=== PATIENT | male | born 1950 | race African-American/Black ===

== ENCOUNTER → 2017-09-22 | Outpatient (CLI) | payer OTHER ==
[~2017-09-22] MED LIST: AMBIEN10 MG PO; CLARITIN10 MG PO; MOTRIN800 MG PO; ROBAXIN750 MG PO; TRAMADOL HCL50 MG PO; VALIUM5 MG PO
== END | disposition home or self-care (01) ==
LOC: RAD 09:55
DX: M47.896 Other spondylosis, lumbar region (principal); M47.897 Other spondylosis, lumbosacral region; M46.02 Spinal enthesopathy, cervical region; M48.02 Spinal stenosis, cervical region

== ENCOUNTER → 2018-01-19 | Outpatient (CLI) | payer OTHER | END | disposition home or self-care (01) | LOC: US 07:29 | DX: F10.10 Alcohol abuse, uncomplicated (principal); R79.89 Other specified abnormal findings of blood chemistry ==

== ENCOUNTER 2019-11-05 18:12 | Emergency (ER) | payer OTHER ==
[~2019-11-05] VITALS: Ht 175.3 cm; Wt 67.1 kg
[2019-11-05 18:19] VITALS: BP 166/101
== END 2019-11-05 22:21 | disposition home or self-care (01) ==
LOC: ED 18:12
DX: S82.202A Unspecified fracture of shaft of left tibia, initial encounter for closed fracture (principal); W18.30XA Fall on same level, unspecified, initial encounter; Y93.89 Activity, other specified; Y92.89 Other specified places as the place of occurrence of the external cause; Y99.8 Other external cause status

== ENCOUNTER → 2021-12-03 | Outpatient (CLI) | payer OTHER | END | disposition home or self-care (01) | LOC: RAD 12:49 | PROVIDERS: ATTEND Preventive Medicine Occupational Medicine | DX: M47.817 Spondylosis without myelopathy or radiculopathy, lumbosacral region (principal); M25.78 Osteophyte, vertebrae ==

== ENCOUNTER → 2024-12-07 | Outpatient (CLI) | payer OTHER | END | disposition home or self-care (01) | LOC: RAD 08:05 | PROVIDERS: ATTEND Physician Assistant | DX: J43.9 Emphysema, unspecified (principal); J98.4 Other disorders of lung; R91.1 Solitary pulmonary nodule; R07.89 Other chest pain; M47.814 Spondylosis without myelopathy or radiculopathy, thoracic region; M48.04 Spinal stenosis, thoracic region; M25.78 Osteophyte, vertebrae ==

== ENCOUNTER → 2025-01-03 | Outpatient (CLI) | payer OTHER | END | disposition home or self-care (01) | LOC: CT 09:00 | PROVIDERS: ATTEND Physician Assistant | DX: J90 Pleural effusion, not elsewhere classified (principal); J43.9 Emphysema, unspecified; J84.10 Pulmonary fibrosis, unspecified; I25.10 Atherosclerotic heart disease of native coronary artery without angina pectoris; R91.1 Solitary pulmonary nodule; J98.4 Other disorders of lung; R05.3 Chronic cough ==

== ENCOUNTER 2025-03-14 13:12 | Emergency (ER) | payer OTHER ==
[~2025-03-14] VITALS: Wt 49.0 kg
[2025-03-14] MEDS ORDERED: SODIUM CHLORIDE 0.9% 1,000 ML IV ONE (13:50)
[2025-03-14] MEDS ORDERED: Ondansetron Hydrochloride 4 MG/2 ML VIAL IV ONE (13:50)
[2025-03-14 14:10] LABS: BASO # 0.0 10*3/uL (0.0-0.1); BASO % 0.1 % (0.0-1.0); EOS # 0.0 10*3/uL (0.0-0.4); EOS % 0.1 % (1.0-4.0); MEAN CELL VOLUME 84.2 fl (80.0-94.0); MEAN CORPUSCULAR HGB 26.4 pg (27.0-31.0); MEAN PLATELET VOLUME 9.0 fl (9.6-12.3); MONO # 1.0 10*3/uL (0.1-1.0); MONO % 7.0 % (3.0-9.0); NEUT # 11.8 10*3/uL (2.3-7.9); NEUT % 81.5 % (47.0-73.0); NUCLEATED RED BLOOD CELL 0.0 % (0.0-0.0); NUCLEATED RED BLOOD CELL 0.0 10*3/uL (0.0-0.0); PLATELET COUNT AUTOMATED 462 10*3/uL (130-400); RED CELL DISTRI WIDTH 15.4 % (0-14.5)
[2025-03-14] MEDS ORDERED: IOHEXOL 300 MG/ML 100 ML VIAL IV ONE (14:15)
[2025-03-14 14:30] LABS: BUN 33 mg/dl (9-23)
[2025-03-14 14:31] LABS: SGPT/ALT < 7 U/L (5-49)
[2025-03-14] MEDS ORDERED: Ondansetron4 MG PO (16:16)
[2025-03-14] MEDS ORDERED: PROTONIX40 MG PO (16:16)
[2025-03-14] MEDS ORDERED: PERCOCET 5-3251 EACH PO (16:17)
== END 2025-03-14 16:21 | disposition home or self-care (01) ==
LOC: ED 13:12
PROVIDERS: Emergency Medicine
DX: C34.90 Malignant neoplasm of unspecified part of unspecified bronchus or lung (principal); D64.9 Anemia, unspecified; E86.0 Dehydration; E83.52 Hypercalcemia; E88.09 Other disorders of plasma-protein metabolism, not elsewhere classified; R63.2 Polyphagia; R53.1 Weakness; R10.2 Pelvic and perineal pain; Z85.118 Personal history of other malignant neoplasm of bronchus and lung; Z98.890 Other specified postprocedural states

== ENCOUNTER 2025-06-12 10:39 | Emergency (ER) | payer MEDICAID ==
[~2025-06-12 10:39] MED LIST changes: +Ondansetron4 MG PO; +PERCOCET 5-3251 EACH PO; +PROTONIX40 MG PO
[2025-06-12 10:49] VITALS: BP 105/74
[2025-06-12] MEDS ORDERED: MAGNESIUM CITRATE 296 ML BOT PO ONE (12:15)
== END 2025-06-12 12:30 | disposition left against medical advice (07) ==
LOC: ED 10:39
DX: K59.00 Constipation, unspecified (principal); J44.9 Chronic obstructive pulmonary disease, unspecified; I10 Essential (primary) hypertension; F32.A Depression, unspecified; Z53.29 Procedure and treatment not carried out because of patient's decision for other reasons; Z98.890 Other specified postprocedural states